=== PATIENT | female | born 1980 | race Caucasian/White ===

== ENCOUNTER 2019-02-17 15:20 | Emergency (ER) | payer OTHER ==
[~2019-02-17] VITALS: Ht 157.5 cm; Wt 56.7 kg
[2019-02-17 15:43] VITALS: Ht 157.5 cm; Wt 56.7 kg
[2019-02-17 19:10] VITALS: BP 122/65
== END 2019-02-17 19:10 | disposition home or self-care (01) ==
LOC: ED 15:20
DX: L03.012 Cellulitis of left finger (principal); Z88.0 Allergy status to penicillin
CPT/HCPCS: J2001